=== PATIENT | female | born 1970 | race Caucasian/White ===

== ENCOUNTER → 2017-03-26 | Outpatient (CLI) | payer BC ==
[~2017-03-26] MED LIST: GABA1CAP4 PO; LEVO25TA5 PO; LISI10TA PO; NRV/5; OMEP40CA PO; TRAM-10 PO
--- NOTE | 2017-03-26 09:19 | DIAGNOSTIC IMAGING REPORT ---
L-SPINE MIN 4 VIEWS ROUTINE CLINICAL HISTORY: LOW BACK PAIN COMPARISON STUDY: No previous studies for comparison. FINDINGS: There is no pathologic bowel dilatation. There are surgical clips in the right upper quadrant consistent with a prior cholecystectomy. No acute fractures or subluxations are visualized. There are minor degenerative changes. No destructive lesions are evident. IMPRESSION: Mild degenerative change. No fractures or subluxations identified. Electronically signed by: Jeffery Ramirez M.D. 03/26/2017 9:18 AM Dictated Date/Time: 03/26/2017 9:17 AM
== END | disposition home or self-care (01) ==
LOC: C.RAD1850 08:58
PROVIDERS: ATTEND Family Medicine
DX: M51.27 Other intervertebral disc displacement, lumbosacral region (principal); M54.5 Low back pain

== ENCOUNTER → 2017-08-09 | Day surgery (SDC) | payer OTHER ==
[2017-07-26 13:37] VITALS: Ht 157.5 cm; Wt 104.1 kg
[~2017-08-09] VITALS: Ht 157.5 cm; Wt 104.1 kg
[~2017-08-09] MED LIST changes: +CITALOPRAM PO; +FENTANYL CITRATE INJ 50 MCG/1 ML 2 ML VIAL ONE; +FERR1TAB23 PO; -GABA1CAP4 PO; -LEVO25TA5 PO; +LEVO75TA PO; +LIDOCAINE HCL 2% 2 ML VIAL (20MG/ML) ONE; -LISI10TA PO; +LISI40TA PO; -NRV/5; +NRV/5 PO; -OMEP40CA PO; +OMEP40CA41 PO; +PROPOFOL IV EMULSION 10 MG/ML 20 ML VIAL IV ONE; +SODIUM CHLORIDE 0.9% 500ML 500 ML IV ONE; -TRAM-10 PO
--- NOTE | 2017-08-09 13:59 | Endo History and Physical ---
History & Physical Date of Service: Aug 09, 2017. Chief Complaint: iron deficiency anemia and nausea Referring Physician: Dr. Johanna Wayne History of Present Illness Nausea; abd pain anemia/diarrhea/constipation Past Medical History Arthritis, Reflux, Hypertension, Thyroid Disease, Depression Past Surgical History Hx Cardiac Surgery: No Hx Internal Defibrillator: No Hx Pacemaker: No Hx Abdominal Surgery: Yes ( X2, LUIS ENRIQUE, UTERINE ABLATION,tubal ligation ) Hx of Implantable Prosthesis: No Hx Post-Op Nausea and Vomiting: No Hx Cancer Surgery: No Hx Thoracic Surgery: No Hx Orthopedic: No Hx Urinary Tract Surgery: No Family History None Social History Smoking Status: Never Smoker Hx Substance Use: No Hx Alcohol Use: Yes (OCCASIONAL) Allergies Coded Allergies: Latex1 -Allergic Contact Dermititis (Verified Allergy, Unknown, RASH, ) Nickel (Verified Allergy, Unknown, RASH, 07/26/17) Penicillins (Verified Allergy, Unknown, RASH, 07/26/17) Current Medications Reported Home Medications Medications Dose Route/Sig Max Daily Dose Days Date Category [Citalopram] Unknown Strength 1 Tab PO DAILY 07/26/17 Reported Iron (Ferrous Sulfate) 325 Mg Tab 1 Tab PO DAILY 07/26/17 Reported Prilosec (Omeprazole) 40 Mg Cap 40 Mg PO DAILY PRN 07/26/17 Reported Synthroid (Levothyroxine Sodium) 75 Mcg Tab 75 Mcg PO QAM 07/26/17 Reported Zestril (Lisinopril) 40 Mg Tab 40 Mg PO QAM 07/26/17 Reported Amlodipine Besylate 5 Mg Tab 1 Tab PO QAM 04/16/16 Reported Vital Signs Weight (Kilograms): 104.09 Height (Feet): 5 Height (Inches): 2 Date Time Temp Pulse Resp B/P (MAP) Pulse Ox O2 Delivery O2 Flow Rate FiO2 08/09/17 13:02 37.1 85 18 140/87 (104) 97 Room Air Physical Exam General Appearance: WD/WN, no apparent distress Respiratory/Chest: Auscultation: breath sounds normal Cardiovascular: Heart Auscultation: RRR Abdomen: Bowel Sounds: normal Inspection & Palpation: soft, non-distended, no tenderness, guarding & rebound Assessment and Plan EGD and colon with biopsies
--- NOTE | 2017-08-09 15:01 | Discharge Instructions ---
Endoscopy Patient Instructions Date / Procedure(s) Performed Aug 09, 2017. Colonoscopy, EGD Allergy Information Coded Allergies: Latex1 -Allergic Contact Dermititis (Verified Allergy, Unknown, RASH, ) Nickel (Verified Allergy, Unknown, RASH, 07/26/17) Penicillins (Verified Allergy, Unknown, RASH, 07/26/17) Discharge Date / Findings Aug 09, 2017. 1) normal EGD push enteroscopy- bx colonoscopy with polyp-snared and sig diverticulosis Medication Instructions Stopped Medication(s): no iron since Wednesday Restart Stopped Medication(s): Reported Home Medications Medications Dose Route/Sig Max Daily Dose Days Date Category [Citalopram] Unknown Strength 1 Tab PO DAILY 07/26/17 Reported Iron (Ferrous Sulfate) 325 Mg Tab 1 Tab PO DAILY 07/26/17 Reported Prilosec (Omeprazole) 40 Mg Cap 40 Mg PO DAILY PRN 07/26/17 Reported Synthroid (Levothyroxine Sodium) 75 Mcg Tab 75 Mcg PO QAM 07/26/17 Reported Zestril (Lisinopril) 40 Mg Tab 40 Mg PO QAM 07/26/17 Reported Amlodipine Besylate 5 Mg Tab 1 Tab PO QAM 04/16/16 Reported resume all meds Reported Home Medications Medications Dose Route/Sig Max Daily Dose Days Date Category [Citalopram] Unknown Strength 1 Tab PO DAILY 07/26/17 Reported Iron (Ferrous Sulfate) 325 Mg Tab 1 Tab PO DAILY 07/26/17 Reported Prilosec (Omeprazole) 40 Mg Cap 40 Mg PO DAILY PRN 07/26/17 Reported Synthroid (Levothyroxine Sodium) 75 Mcg Tab 75 Mcg PO QAM 07/26/17 Reported Zestril (Lisinopril) 40 Mg Tab 40 Mg PO QAM 07/26/17 Reported Amlodipine Besylate 5 Mg Tab 1 Tab PO QAM 04/16/16 Reported resume all meds Provider Instructions Activity Restrictions - No exercising or heavy lifting for 24 hours. - Do not drink alcohol the day of the procedure. - Do not drive a car or operate machinery until the day after the procedure. - Do not make any important decisions or sign important papers in 24 hours after the procedure. Following Day: - Return to full activity which may include returning to work/school. Diet Start your diet with liquids and light foods (jello, soup, juice, toast). Then eat your usual diet if not nauseated. Treatment For Common After Affects For mild abdominal pain, bloating, or excessive gas: - Rest - Eat lightly - Lie on right side Follow-Up Information Follow-up with Dr. Johanna Wayne as scheduled Anesthesia Information What You Should Know You have had a procedure that required some medicine to reduce anxiety and discomfort. This treatment is called moderate sedation. After receiving the treatment, you may be sleepy, but you will be able to breathe on your own. The effects of the treatment may last for several hours. Follow these instructions along with Activity/Diet recommendations noted above: * Do NOT do anything where dizziness or clumsiness would be dangerous. * Rest quietly at home today, then you can be up and about tomorrow. * Have a responsible person stay with you the rest of today. * You may have had an I.V. today. If so, you may take the dressing off later today. Recommendations Call your doctor if: * Trouble breathing * Continuous vomiting for more than 24 hours * Temperature above 101 degrees * Severe abdominal pain or bloating * Pain not relieved by pain medicine ordered * There is increased drainage or redness from any incision * A large amount of rectal bleeding greater than 2-3 tablespoons. (If you had a polyp/s removed or have hemorrhoids, a small amount of blood - from the rectum is to be expected.) * You have any unanswered questions or concerns. IN THE EVENT OF A SERIOUS EMERGENCY, GO TO THE NEAREST EMERGENCY ROOM Your discharge instructions were prepared by provider Gonzalo Bhardwaj. Patient Instructions Signature Page Marci Sky Patient (or Guardian) Signature/Date: I have read and understand the instructions given to me by my caregivers. Caregiver/RN/Doctor Signature/Date: The above-named patient and/or guardian has received patient instructions on this date. + Original Patient Signature Page (only) stays with chart. Please make copy for patient.
--- NOTE | 2017-08-09 15:09 | GI REPORT ---
Procedure Date: 08/09/2017 2:28 PM Procedure: Upper GI endoscopy Indications: Epigastric abdominal pain, Unexplained iron deficiency anemia, Diarrhea, Nausea Medicines: Propofol per Anesthesia Complications: No immediate complications. Estimated blood loss: Minimal. Estimated Blood Loss: Estimated blood loss was minimal. Procedure: Pre-Anesthesia Assessment: - Prior to the procedure, a History and Physical was performed, and patient medications and allergies were reviewed. The patient's tolerance of previous anesthesia was also reviewed. The risks and benefits of the procedure and the sedation options and risks were discussed with the patient. All questions were answered, and informed consent was obtained. Prior Anticoagulants: The patient has taken no previous anticoagulant or antiplatelet agents. ASA Grade Assessment: II - A patient with mild systemic disease. After reviewing the risks and benefits, the patient was deemed in satisfactory condition to undergo the procedure. After obtaining informed consent, the endoscope was passed under direct vision. Throughout the procedure, the patient's blood pressure, pulse, and oxygen saturations were monitored continuously. The scope was introduced through the mouth, and advanced to the mid-jejunum. The upper GI endoscopy was accomplished without difficulty. The patient tolerated the procedure well. Findings: The examined esophagus was normal. The entire examined stomach was normal. Biopsies were taken with a cold forceps for histology. Estimated blood loss was minimal. Verification of patient identification for the specimen was done by the physician and certified ophthalmic technician using the patient's name and medical record number. The examined duodenum was normal. Biopsies for histology were taken with a cold forceps for evaluation of celiac disease. Estimated blood loss was minimal. Verification of patient identification for the specimen was done by the physician and certified ophthalmic technician using the patient's name and medical record number. The examined jejunum was normal. The cardia and gastric fundus were normal on retroflexion. Retained gastric contents are not identified on this exam. Impression: - Normal esophagus. - Normal stomach. Biopsied. - Normal examined duodenum. Biopsied. - Normal examined jejunum. Recommendation: - Discharge patient to home (ambulatory). - Resume regular diet. - Await pathology results. - Perform a colonoscopy today. MD Gonzalo Rubio MD 08/09/2017 3:09:04 PM This report has been signed electronically. Note Initiated On: 08/09/2017 2:28 PM I attest to the content of the Intraoperative Record and orders documented therein, exceptions below
--- NOTE | 2017-08-09 15:13 | Anesthesiology Progress Note ---
Anesthesia Post Op Note Date & Time Aug 09, 2017 at 15:13 Vital Signs Pain Intensity: 0 Vital Signs Past 12 Hours Date Time Temp Pulse Resp B/P (MAP) Pulse Ox O2 Delivery O2 Flow Rate FiO2 08/09/17 15:04 66 12 123/73 (90) 98 Room Air 08/09/17 13:02 37.1 85 18 140/87 (104) 97 Room Air Notes Mental Status: alert / awake / arousable, participated in evaluation Pt Amnestic to Procedure: Yes Nausea / Vomiting: adequately controlled Pain: adequately controlled Airway Patency, RR, SpO2: stable & adequate BP & HR: stable & adequate Hydration State: stable & adequate Anesthetic Complications: no major complications apparent
--- NOTE | 2017-08-09 15:24 | GI REPORT ---
Procedure Date: 08/09/2017 2:28 PM Procedure: Colonoscopy Indications: Abdominal pain, Chronic diarrhea, Iron deficiency anemia, Change in bowel habits Medicines: Propofol per Anesthesia Complications: No immediate complications. Estimated blood loss: Minimal. Estimated Blood Loss: Estimated blood loss was minimal. Procedure: Pre-Anesthesia Assessment: - Prior to the procedure, a History and Physical was performed, and patient medications and allergies were reviewed. The patient's tolerance of previous anesthesia was also reviewed. The risks and benefits of the procedure and the sedation options and risks were discussed with the patient. All questions were answered, and informed consent was obtained. Prior Anticoagulants: The patient has taken no previous anticoagulant or antiplatelet agents. ASA Grade Assessment: II - A patient with mild systemic disease. After reviewing the risks and benefits, the patient was deemed in satisfactory condition to undergo the procedure. After I obtained informed consent, the scope was passed under direct vision. Throughout the procedure, the patient's blood pressure, pulse, and oxygen saturations were monitored continuously. The scope was introduced through the anus and advanced to the terminal ileum, with identification of the appendiceal orifice and IC valve. The colonoscopy was performed without difficulty. The patient tolerated the procedure well. The quality of the bowel preparation was good. Findings: The perianal and digital rectal examinations were normal. Pertinent negatives include normal sphincter tone, no palpable rectal lesions and no anal lesion or abnormality was detected. A 8 mm polyp was found in the ascending colon. The polyp was sessile. The polyp was removed with a hot snare. Resection and retrieval were complete. Estimated blood loss: none. Verification of patient identification for the specimen was done by the physician and oscillograph technician using the patient's name and medical record number. A 5 mm polyp was found in the ascending colon. The polyp was sessile. The polyp was removed with a cold biopsy forceps. Resection and retrieval were complete. Estimated blood loss was minimal. Verification of patient identification for the specimen was done by the physician and oscillograph technician using the patient's name and medical record number. The rectum, descending colon, ascending colon and ileum appeared normal. Estimated blood loss was minimal. Verification of patient identification for the specimen was done by the physician and oscillograph technician using the patient's name and medical record number. Biopsies were taken with a cold forceps for histology. Many small-mouthed diverticula were found in the sigmoid colon. The exam was otherwise without abnormality. The retroflexed view of the distal rectum and anal verge was normal and showed no anal or rectal abnormalities. Impression: - One 8 mm polyp in the ascending colon, removed with a hot snare. Resected and retrieved. - One 5 mm polyp in the ascending colon, removed with a cold biopsy forceps. Resected and retrieved. - The rectum, descending colon, ascending colon and terminal ileum are normal. Biopsied. - Diverticulosis in the sigmoid colon. - The examination was otherwise normal. - The distal rectum and anal verge are normal on retroflexion view. Recommendation: - Discharge patient to home (ambulatory). - Resume regular diet. - Continue present medications. - Await pathology results. - Repeat colonoscopy for surveillance based on pathology results. - Return to referring physician as previously scheduled. MD Gonzalo Rubio MD 08/09/2017 3:23:40 PM This report has been signed electronically. Note Initiated On: 08/09/2017 2:28 PM I attest to the content of the Intraoperative Record and orders documented therein, exceptions below
[2017-08-09 15:34] VITALS: BP 126/69; PULSE 58; O2SAT 100
== END | disposition home or self-care (01) ==
LOC: C.GI 12:43
PROVIDERS: ATTEND Internal Medicine Gastroenterology
DX: R10.13 Epigastric pain (principal); D50.9 Iron deficiency anemia, unspecified; R19.7 Diarrhea, unspecified; R11.0 Nausea; R19.4 Change in bowel habit; D12.2 Benign neoplasm of ascending colon; K57.30 Diverticulosis of large intestine without perforation or abscess without bleeding; I10 Essential (primary) hypertension; F32.9 Major depressive disorder, single episode, unspecified; M19.90 Unspecified osteoarthritis, unspecified site; Z91.040 Latex allergy status; Z98.51 Tubal ligation status; Z88.0 Allergy status to penicillin; Z90.49 Acquired absence of other specified parts of digestive tract; E66.01 Morbid (severe) obesity due to excess calories; Z68.41 Body mass index [BMI] 40.0-44.9, adult